=== PATIENT | female | born 1945 | race African-American/Black ===

== ENCOUNTER 2017-03-28 15:41 | Inpatient (IN) | payer MEDICARE, MEDICAID ==
[~2017-03-28] VITALS: Ht 162.6 cm; Wt 49.9 kg
[2017-03-28] MEDS ORDERED: SODIUM CHLORIDE 0.9% 1,000 ML IV ONE (16:02)
[2017-03-28 16:30] LABS: HEMATOCRIT. 34.7 % (36.0-48.0); HEMOGLOBIN. 11.8 g/dL (12.0-16.0); MEAN CORPUSCULAR HEMOGLOBIN 30.3 pg (28.0-32.0); MEAN CORPUSCULAR VOLUME 88.9 fL (81.0-99.0); MEAN PLATELET VOLUME 9.5 fl (7.4-10.4); PLATELET 209 x1000/uL (130-400); RED CELL DISTRIBUTION WIDTH 13.8 % (11.6-14.6)
[2017-03-28 16:37] LABS: PARTIAL THROMBOPLASTIN TIME 25.5 sec (23.4-31.0); PROTHROMBIN TIME 10.9 sec (9.4-11.6)
[2017-03-28 16:44] LABS: CARBON DIOXIDE 28 mEq/L (21-32); CHLORIDE 102 mEq/L (98-107); TROPONIN I < 0.02 ng/mL (0.00-0.04)
[2017-03-28 16:45] LABS: CREATINE KINASE MB FRACTION < 0.5 ng/mL (0.5-3.6)
[2017-03-28 17:00] LABS: PLATELET ESTIMATE NORMAL
[2017-03-28] MEDS ORDERED: LEVOFLOXACIN 750MG PREMIX 150 ML IV ONE (17:30)
[2017-03-28] MEDS ORDERED: SODIUM CHLORIDE 0.9% 1000ML BAG (SEPSIS BOLUS) IV ONE (17:30)
[2017-03-28] MEDS ORDERED: ASPIRIN 325MG EC TABLET PO ONE (17:30)
[2017-03-28 20:01] LABS: GLUCOSE URINE NEGATIVE (NEGATIVE); KETONES URINE NEGATIVE (NEGATIVE); LEUKOCYTE ESTERASE URINE NEGATIVE (NEGATIVE); NITRITE URINE NEGATIVE (NEGATIVE); OCCULT BLOOD URINE NEGATIVE (NEGATIVE); PH URINE 7.5 (4.5-8.0); PROTEIN URINE TRACE (NEGATIVE); SPECIFIC GRAVITY URINE 1.009 (1.005-1.030)
[2017-03-28 20:15] LABS: CLARITY URINE HAZY (CLEAR); COLOR URINE YELLOW (YELLOW)
[2017-03-28 20:45] VITALS: BP 156/51
[2017-03-28 21:00] VITALS: BP 156/51
[2017-03-28] MEDS ORDERED: ENOXAPARIN 40MG/0.4ML SYR SUBCUT SCH (21:00)
[2017-03-28] MEDS ORDERED: CLONIDINE 0.1MG TABLET PO PRN (21:00)
[2017-03-28] MEDS ORDERED: LEVOFLOXACIN 500MG PREMIX 100 ML IV SCH (21:00)
[2017-03-28] MEDS ORDERED: HYDROCODONE/ACETAMINOPHEN 5/325MG TABLET PO PRN (21:00)
[2017-03-28] MEDS ORDERED: ONDANSETRON HCL 4MG/2ML VIAL IV PRN (21:00)
[2017-03-28] MEDS ORDERED: DOCUSATE SODIUM 100MG CAPSULE PO PRN (21:00)
[2017-03-28] MEDS ORDERED: ACETAMINOPHEN 325MG TABLET PO PRN (21:00)
[2017-03-28] MEDS ORDERED: METO-396 PO (21:40)
[2017-03-28] MEDS ORDERED: MEDICATION NOT ON FORMULARY EA (Metoprolol Succinate 25 MG) PO SCH (21:45)
[2017-03-28] MEDS: METOPROLOL TARTRATE 25MG TABLET PO SCH (23:03)
[2017-03-28] MEDS: SODIUM CHLORIDE 0.9% 1,000 ML IV SCH (23:03)
[2017-03-28 23:58] LABS: CREATINE KINASE 40 IU/L (26-192); CREATINE KINASE MB FRACTION 0.7 ng/mL (0.5-3.6); TROPONIN I < 0.02 ng/mL (0.00-0.04)
[2017-03-29] VITALS: BP 128/49
[2017-03-29 04:00] VITALS: BP 113/66
[2017-03-29 05:37] VITALS: BP 113/66
[2017-03-29 07:17] LABS: BASOPHILS % 0.1 % (0.0-2.0); EOSINOPHILS % 0.1 % (0.0-5.0); HEMATOCRIT. 28.6 % (36.0-48.0); HEMOGLOBIN. 9.8 g/dL (12.0-16.0); LYMPHOCYTES % 13.9 % (20.0-50.0); MEAN CORPUSCULAR HEMOGLOBIN 30.3 pg (28.0-32.0); MEAN CORPUSCULAR VOLUME 88.6 fL (81.0-99.0); MONOCYTES % 5.7 % (2.0-8.0); NEUTROPHILS % 80.2 % (40.0-76.0); PLATELET 172 x1000/uL (130-400); RED BLOOD CELL COUNT 3.23 mill/uL (4.2-5.4); RED CELL DISTRIBUTION WIDTH 13.6 % (11.6-14.6)
[2017-03-29] MEDS ORDERED: TRIA1TAB5 PO (07:38)
[2017-03-29] MEDS ORDERED: NAPR-679 PO (07:38)
[2017-03-29] MEDS ORDERED: FERR-63 PO (07:38)
[2017-03-29] MEDS ORDERED: AMLO2.5T45 PO (07:38)
[2017-03-29] MEDS ORDERED: RANI150C12 PO (07:38)
[2017-03-29 08:00] VITALS: BP 147/55
[2017-03-29] MEDS: ASPIRIN 81MG EC TABLET PO SCH (08:51)
[2017-03-29] MEDS: METOPROLOL TARTRATE 25MG TABLET PO SCH ×2 (08:51→20:52)
[2017-03-29] MEDS: ENOXAPARIN 30MG/0.3ML SYR SUBCUT SCH (08:51)
[2017-03-29 09:05] LABS: CARBON DIOXIDE 26 mEq/L (21-32); CHLORIDE 110 mEq/L (98-107); CREATINE KINASE 65 IU/L (26-192); CREATINE KINASE MB FRACTION 0.9 ng/mL (0.5-3.6); HDL CHOLESTEROL 45 mg/dL (40-59); LDL CHOLESTEROL 70 mg/dL (5-100); T4 FREE 1.34 ng/dL (0.76-1.46); TROPONIN I < 0.02 ng/mL (0.00-0.04)
[2017-03-29] MEDS ORDERED: POTASSIUM CHLORIDE 20MEQ TABLET SR PO NR (09:45)
[2017-03-29] MEDS: AMLODIPINE 2.5MG TABLET PO SCH (10:12)
[2017-03-29] MEDS: SODIUM CHLORIDE 0.9% 1,000 ML IV SCH (10:12)
[2017-03-29] MEDS: FERROUS SULFATE 325MG TABLET PO SCH ×2 (10:12→17:07)
[2017-03-29] MEDS: TRIAMTERENE/HYDROCHLOROTHIAZID 75/50MG TABLET PO SCH (10:55)
[2017-03-29 12:00] VITALS: BP 136/45
[2017-03-29] MEDS ORDERED: MAGNESIUM 1 G PREMIX 100 ML IV SCH (13:30)
[2017-03-29] MEDS ORDERED: LEVOFLOXACIN 250MG PREMIX 50 ML IV SCH (18:00)
[2017-03-29 20:00] VITALS: BP 154/44
[2017-03-30] VITALS: BP 147/66
[2017-03-30] MEDS: SODIUM CHLORIDE 0.9% 1,000 ML IV SCH (02:24)
[2017-03-30 04:00] VITALS: BP 133/56
[2017-03-30 07:49] VITALS: BP 133/54
[2017-03-30 07:58] LABS: BASOPHILS % 0.3 % (0.0-2.0); EOSINOPHILS % 0.3 % (0.0-5.0); HEMATOCRIT. 29.8 % (36.0-48.0); HEMOGLOBIN. 10.4 g/dL (12.0-16.0); LYMPHOCYTES % 17.8 % (20.0-50.0); MEAN CORPUSCULAR HEMOGLOBIN 30.8 pg (28.0-32.0); MEAN CORPUSCULAR VOLUME 88.4 fL (81.0-99.0); MEAN PLATELET VOLUME 9.7 fl (7.4-10.4); MONOCYTES % 8.2 % (2.0-8.0); NEUTROPHILS % 73.4 % (40.0-76.0); PLATELET 184 x1000/uL (130-400); RED BLOOD CELL COUNT 3.37 mill/uL (4.2-5.4); RED CELL DISTRIBUTION WIDTH 13.9 % (11.6-14.6)
[2017-03-30] MEDS: FERROUS SULFATE 325MG TABLET PO SCH (08:23)
[2017-03-30] MEDS: TRIAMTERENE/HYDROCHLOROTHIAZID 75/50MG TABLET PO SCH (08:23)
[2017-03-30] MEDS: ASPIRIN 81MG EC TABLET PO SCH (08:23)
[2017-03-30] MEDS: METOPROLOL TARTRATE 25MG TABLET PO SCH (08:23)
[2017-03-30] MEDS: ENOXAPARIN 30MG/0.3ML SYR SUBCUT SCH (08:24)
[2017-03-30] MEDS: AMLODIPINE 2.5MG TABLET PO SCH (08:24)
[2017-03-30 08:55] LABS: CARBON DIOXIDE 25 mEq/L (21-32); CHLORIDE 109 mEq/L (98-107)
[2017-03-30] MEDS ORDERED: POTASSIUM CHLORIDE 20MEQ TABLET SR PO SCH (09:45)
[2017-03-30 11:54] VITALS: BP 136/66
[2017-03-30 12:11] VITALS: BP 136/66
== END 2017-03-30 15:50 | disposition home or self-care (01) | DRG 682 ==
LOC: ER 15:56 → 8WST 17:39 → EDBEDREQ 17:41 → EDBEDREQTM 17:41 → ENRESERV 18:52
PROVIDERS: ADMIT Hospitalist; ATTEND Hospitalist
DX: N17.9 Acute kidney failure, unspecified (principal); J18.9 Pneumonia, unspecified organism; E44.1 Mild protein-calorie malnutrition; G90.8 Other disorders of autonomic nervous system; Z68.1 Body mass index [BMI] 19.9 or less, adult; I10 Essential (primary) hypertension; E87.6 Hypokalemia; E11.9 Type 2 diabetes mellitus without complications; Z87.891 Personal history of nicotine dependence
CPT/HCPCS: 36415; 71010; 80053; 80061; 81001; 82550; 82553; 82962; 83036; 83605; 83735; 83880; 84439; 84443; 84484; 85025; 85610; 85730; 87040; 87086; 93005; 93306; 93970; 96361; 96374; 97161; 99285; J1650; J1956; J3475; J7030